=== PATIENT | male | born 1950 | race Caucasian/White ===

== ENCOUNTER → 2024-05-10 11:19 | Outpatient (REF) | payer MEDICARE, OTHER, SELFPAY | LOC: RCS 11:19 | PROVIDERS: ATTENDING PHYSICIAN Nuclear Medicine Nuclear Cardiology; FAMILY PHYSICIAN Family Medicine | DX: R94.31 Abnormal electrocardiogram [ECG] [EKG] (principal); E78.2 Mixed hyperlipidemia; I51.89 Other ill-defined heart diseases; I49.1 Atrial premature depolarization | CPT/HCPCS: 93306 ==